=== PATIENT | female | born 1985 | race Caucasian/White ===

== ENCOUNTER 2022-06-10 07:52 | Emergency (ER) | payer OTHER ==
--- OUTSIDE RECORDS SUMMARY | 2022-06-10 08:01 | XMS REPORT | Continuity of Care Document ---
:1985 Author Organization [facility] t Address [address] [place] [address] Care Team Providers Name Role Phone PCP, PATIENT DOES NOT HAVE A Primary Care Physician Unavaila YAHAIRA Murrieta Attending Clinician Unavailable YAHAIRA RODRIGUEZ Attending Clinician Unavailable YARI ACOSTA Attending Clinician Unavailable Yari Acosta MD Attending Clinician 2, [facility] Attending Clinician Unavailable Ultrasound, Ang-Mfm Attending Clinician Unavailable Amita Underwood DO Attending Clinician Doctor Unassigned, [place] Attending Clinician Unavailable ARMEN PANDYA Attending Clinician Unavailable Arielle Atkinson Attending Clinician Unavailable Armen Pandya MD Attending Clinician PAULY Attending Clinician Unavailable CIPRIANO Attending Clinician Unavailable A_Byrd Attending Clinician Unavailable PAULY Admitting Clinician Unavailable CIPRIANO Admitting Clinician Unavailable A_Byrd Admitting Clinician Unavailable Payers Payer Name Policy Type Policy Number Effective Date Expiration Date [facility] [id number] 2021 CHOICE [place] STAR 00:00:00 [place]: [id number] 2020 [email or web address] 00:00:00 DARS 1985 Problems Condition Condition Condition Status Onset Resolution Last Treating Co mments Source Name Details Category Date Date Treatment Clinician Date Need for Need for Disease Active Unive rs Tdap Tdap 1- it[place] of [place] 00 Medical Branch AMA AMA Disease Active Univers (advanced (advanced 1-22 ity of maternal maternal 00:00: [place] age) age) 00 Medical multigravi multigravi Br anch da 35+, da 35+, third third trimester trimester Supervisio Supervisio Disease Active 2021-04 U nivers n of n of 2-14 ity of high-risk high-risk 00:[place] 00 Medi davy of elderly of elderly Br anch multigravi multigravi da da 23 weeks 23 weeks Disease Active 2021-04 Unive rs gestation gestation 2-14 ity of of of 00:00: [place] 00 Medi davy Branch Hypothyroi Hypothyroi Disease Active 2021-04 U nivers dism in dism in 2-14 ity of , , [place] antepartum antepartum 00 Me dical , second , second Branch trimester trimester ASCUS with ASCUS with Disease Active 2021-04 U nivers positive positive 1-04 ity of high risk high risk 00:[place] HPV HPV 00 Medical cervical cervical Branch Obesity Obesity Disease Active Univers (BMI (BMI 9-27 ity of 30-39.9) 30-39.9) 00:00: [place] 00 Medical Branch Polycystic Polycystic Problem Active M [facility] ovaries Ovaries 2-21 da 00:00: Medical 00 Group Disease Active 2008-04 Overview: Un matthew delivery delivery -24 Formattin ity of delivered delivered 00:00: g of this [place] 00 note Medical might be Branch different from the original. 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 Anxiety Anxiety Disease Active Univers ity of [facility] Depression Depression Disease Active U nivers affecting affecting ity of , , [place] antepartum antepartum Me dical Branch Furuncle Furuncle Problem Active [facility] [facility] Lethargy Lethargy Problem Active [place] [facility] Allergies, Adverse Reactions, Alerts Allergy Allergy Status Severity Reaction(s) Onset Inactive Treating Comm ents Source Name Type Date Date Clinician NO KNOWN Drug Active Univers ALLERGIE Class ity of [facility] Social History Social Habit Start Date Stop Date Quantity Comments Source ASSERTION 2021-11-11 University of 00:00:00 [facility] History of Cigarette Smoker Universi ty of tobacco use [place] [facility] [place] History SDOH University o f Alcohol Frequency [facility] edical Branch History SDOH University o f Alcohol Std [place] [facility] Drinks Branch History [facility] University o f Alcohol Binge [place] [facility] al Branch Exposure to 2022-05-16 2022-05-26 Not sure [facility] SARS-CoV-2 00:00:00 16:07:00 [facility] (event) Branch Alcohol intake 2022-05-26 2022-05-26 Ex-drinker University of 00:00:00 00:00:00 (finding) [facility] Tobacco use and 2022-01-19 2022-01-19 Smokeless tobacco Un iversity of exposure 00:00:00 00:00:00 non-user [facility] Alcohol Comment 2022-01-19 2022-01-19 quit when found Univ ersity of 00:00:00 00:00:00 was [place] Medica l Branch Tobacco Comment 2022-01-19 2022-01-19 Quit tabacco when Un iversity of 00:00:00 00:00:00 found out was [place] Medic al Branch Sex [birth year] Universit y of 00:00:00 00:00:00 [facility] Smoking Status Start Date Stop Date Source Tobacco smoking [place] consumption unknown Medical Bran ch Ex-smoker 2022-01-19 00:00:00 2022-01-19 [place] o [facility] [place] [facility] 00:00:00 Medical Branch Medications Ordered Filled Start Stop Current Ordering Indication Dosage Frequency Signature Comments Components Source Medication Medication Date Date Medication? Clinician (SIG) Name Name metformin 2021-04- No 2 tablets Un matthew ER 500 mg 2-14 04-07 with ity of 24 hr 13:58: 00:00 evening [place] tablet 54 :00 [facility] metformin 2021-0 Yes 2 tablets Uni vers ER 500 mg 9-27 with ity of 24 hr 10:19: evening [place] tablet 40 [facility] metformin 2021-0 Yes 2 tablets Uni vers ER 500 mg 9-27 with ity of 24 hr 10:19: evening [place] tablet 40 [facility] metformin 2021-0 Yes 2 tablets Uni vers ER 500 mg 9-27 with ity of 24 hr 10:19: evening [place] tablet 40 [facility] metformin 2021-0 Yes 2 tablets Uni vers ER 500 mg 9-27 with ity of 24 hr 10:19: evening [place] tablet 40 [facility] metformin 2021-0 Yes 2 tablets Uni vers ER 500 mg 9-27 with ity of 24 hr 10:19: evening [place] tablet 40 [facility] metformin 2021-0 Yes 2 tablets Uni vers ER 500 mg 9-27 with ity of 24 hr 10:19: evening [place] tablet 40 [facility] metformin 2021-0 Yes 2 tablets Uni vers ER 500 mg 9-27 with ity of 24 hr 10:19: evening [place] tablet 40 [facility] metformin 2021-0 Yes 2 tablets Uni vers ER 500 mg 9-27 with ity of 24 hr 10:19: evening [place] tablet 40 [facility] metformin 2021-0 Yes 2 tablets Uni vers ER 500 mg 9-27 with ity of 24 hr 10:19: evening [place] tablet 40 [facility] metformin 2021-0 Yes 2 tablets Uni vers ER 500 mg 9-27 with ity of 24 hr 10:19: evening [place] tablet 40 [facility] metformin 2021-0 Yes 2 tablets Uni vers ER 500 mg 9-27 with ity of 24 hr 10:19: evening [place] tablet 40 [facility] metformin 2021-0 Yes 2 tablets Uni vers ER 500 mg 9-27 with ity of 24 hr 10:19: evening [place] tablet 40 [facility] metformin 2021-0 Yes 2 tablets Uni vers ER 500 mg 9-27 with ity of 24 hr 10:19: evening [place] tablet 40 meal Medical Branch metformin 2-0 Yes 2 tablets Uni vers ER 500 mg 9-27 with ity of 24 hr 10:19: evening [place] tablet 40 meal Medical Branch metformin 2022-0 Yes 2 tablets Uni vers ER 500 mg 9-27 with ity of 24 hr 10:19: evening [place] tablet 40 meal Medical Branch buPROPion 2022-0 Yes 1 tablet Univ ers SR 150 mg 9-27 in the ity of SR tablet 09:47: morning [place] 19 Medical Branch levothyroxi 2021-0 Yes TAKE 1 Univ ers ne 175 mcg 9-27 TABLET BY ity of tablet 09:47: MOUTH ONCE [place] 19 DAILY ON Medical AN EMPTY Branch STOMACH IN THE MORNING - DOSE CHANGE buPROPion 2021-0 Yes 1 tablet Univ ers SR 150 mg 9-27 in the ity of SR tablet 09:47: morning [place] 19 Medical Branch levothyroxi 2021-0 Yes TAKE 1 Univ ers ne 175 mcg 9-27 TABLET BY ity of tablet 09:47: MOUTH ONCE [place] 19 DAILY ON Medical AN EMPTY Branch STOMACH IN THE MORNING - DOSE CHANGE buPROPion 2021-0 Yes 1 tablet Univ ers SR 150 mg 9-27 in the ity of SR tablet 09:47: morning [place] 19 Medical Branch levothyroxi 2021-0 Yes TAKE 1 Univ ers ne 175 mcg 9-27 TABLET BY ity of tablet 09:47: MOUTH ONCE [place] 19 DAILY ON Medical AN EMPTY Branch STOMACH IN THE MORNING - DOSE CHANGE buPROPion 2021-0 Yes 1 tablet Univ ers SR 150 mg 9-27 in the ity of SR tablet 09:47: morning [place] 19 Medical Branch levothyroxi 2021-0 Yes TAKE 1 Univ ers ne 175 mcg 9-27 TABLET BY ity of tablet 09:47: MOUTH ONCE [place] 19 DAILY ON Medical AN EMPTY Branch STOMACH IN THE MORNING - DOSE CHANGE buPROPion 2021-0 Yes 1 tablet Univ ers SR 150 mg 9-27 in the ity of SR tablet 09:47: morning [place] 19 Medical Branch levothyroxi 2021-0 Yes TAKE 1 Univ ers ne 175 mcg 9-27 TABLET BY ity of tablet 09:47: MOUTH ONCE [place] 19 DAILY ON Medical AN EMPTY Branch STOMACH IN THE MORNING - DOSE CHANGE buPROPion 2021-0 Yes 1 tablet Univ ers SR 150 mg 9-27 in the ity of SR tablet 09:47: morning [place] 19 Medical Branch levothyroxi 2021-0 Yes TAKE 1 Univ ers ne 175 mcg 9-27 TABLET BY ity of tablet 09:47: MOUTH ONCE [place] 19 DAILY ON Medical AN EMPTY Branch STOMACH IN THE MORNING - DOSE CHANGE buPROPion 2022-0 Yes 1 tablet Univ ers SR 150 mg 9-27 in the ity of SR tablet 09:47: morning [place] 19 Medical Branch levothyroxi 2021-0 Yes TAKE 1 Univ ers ne 175 mcg 9-27 TABLET BY ity of tablet 09:47: MOUTH ONCE [place] 19 DAILY ON Medical AN EMPTY Branch STOMACH IN THE MORNING - DOSE CHANGE buPROPion 2021-0 Yes 1 tablet Univ ers SR 150 mg 9-27 in the ity of SR tablet 09:47: morning [place] 19 Medical Branch levothyroxi 2021-0 Yes TAKE 1 Univ ers ne 175 mcg 9-27 TABLET BY ity of tablet 09:47: MOUTH ONCE [place] 19 DAILY ON Medical AN EMPTY Branch STOMACH IN THE MORNING - DOSE CHANGE buPROPion 2021-0 Yes 1 tablet Univ ers SR 150 mg 9-27 in the ity of SR tablet 09:47: morning [place] 19 Medical Branch levothyroxi 2021-0 Yes TAKE 1 Univ ers ne 175 mcg 9-27 TABLET BY ity of tablet 09:47: MOUTH ONCE [place] 19 DAILY ON Medical AN EMPTY Branch STOMACH IN THE MORNING - DOSE CHANGE buPROPion 2-0 Yes 1 tablet Univ ers SR 150 mg 9-27 in the ity of SR tablet 09:47: morning [place] 19 Medical Branch levothyroxi 2021-0 Yes TAKE 1 Univ ers ne 175 mcg 9-27 TABLET BY ity of tablet 09:47: MOUTH ONCE [place] 19 DAILY ON Medical AN EMPTY Branch STOMACH IN THE MORNING - DOSE CHANGE buPROPion 2-0 Yes 1 tablet Univ ers SR 150 mg 9-27 in the ity of SR tablet 09:47: morning [place] 19 Medical Branch levothyroxi 2021-0 Yes TAKE 1 Univ ers ne 175 mcg 9-27 TABLET BY ity of tablet 09:47: MOUTH ONCE [place] 19 DAILY ON Medical AN EMPTY Branch STOMACH IN THE MORNING - DOSE CHANGE buPROPion 2-0 Yes 1 tablet Univ ers SR 150 mg 9-27 in the ity of SR tablet 09:47: morning [place] 19 Medical Branch levothyroxi 2022-0 Yes TAKE 1 Univ ers ne 175 mcg 9-27 TABLET BY ity of tablet 09:47: MOUTH ONCE [place] 19 DAILY ON Medical AN EMPTY Branch STOMACH IN THE MORNING - DOSE CHANGE buPROPion 2022-0 Yes 1 tablet Univ ers SR 150 mg 9-27 in the ity of SR tablet 09:47: morning [place] 19 Medical Branch levothyroxi 202-0 Yes TAKE 1 Univ ers ne 175 mcg 9-27 TABLET BY ity of tablet 09:47: MOUTH ONCE [place] 19 DAILY ON Medical AN EMPTY Branch STOMACH IN THE MORNING - DOSE CHANGE buPROPion 2022-0 Yes 1 tablet Univ ers SR 150 mg 9-27 in the ity of SR tablet 09:47: morning [place] 19 Medical Branch levothyroxi 2021-0 Yes TAKE 1 Univ ers ne 175 mcg 9-27 TABLET BY ity of tablet 09:47: MOUTH ONCE [place] 19 DAILY ON Medical AN EMPTY Branch STOMACH IN THE MORNING - DOSE CHANGE buPROPion 2022-0 Yes 1 tablet Univ ers SR 150 mg 9-27 in the ity of SR tablet 09:47: morning [place] 19 Medical Branch levothyroxi 2021-0 Yes TAKE 1 Univ ers ne 175 mcg 9-27 TABLET BY ity of tablet 09:47: MOUTH ONCE [place] 19 DAILY ON Medical AN EMPTY Branch STOMACH IN THE MORNING - DOSE CHANGE buPROPion 2022-0 Yes 1 tablet Univ ers SR 150 mg 9-27 in the ity of SR tablet 09:47: morning [place] 19 Medical Branch levothyroxi 2022-0 Yes TAKE 1 Univ ers ne 175 mcg 9-27 TABLET BY ity of tablet 09:47: MOUTH ONCE [place] 19 DAILY ON Medical AN EMPTY Branch STOMACH IN THE MORNING - DOSE CHANGE buPROPion 2022-0 Yes 1 tablet Univ ers SR 150 mg 9-27 in the ity of SR tablet 09:47: morning [place] 19 Medical Branch levothyroxi 2022-0 Yes TAKE 1 Univ ers ne 175 mcg 9-27 TABLET BY ity of tablet 09:47: MOUTH ONCE [place] 19 DAILY ON Medical AN EMPTY Branch STOMACH IN THE MORNING - DOSE CHANGE buPROPion 2022-0 Yes 1 tablet Univ ers SR 150 mg 9-27 in the ity of SR tablet 09:47: morning [place] 19 Medical Branch levothyroxi 202-0 Yes TAKE 1 Univ ers ne 175 mcg 9-27 TABLET BY ity of tablet 09:47: MOUTH ONCE [place] 19 DAILY ON Medical AN EMPTY Branch STOMACH IN THE MORNING - DOSE CHANGE buPROPion Yes 1 tablet Univ ers SR 150 mg 9-27 in the ity of SR tablet 09:47: morning [place] 19 Medical Branch levothyroxi Yes TAKE 1 Univ ers ne 175 mcg 9-27 TABLET BY ity of tablet 09:47: MOUTH ONCE [place] 19 DAILY ON Medical AN EMPTY Branch STOMACH IN THE MORNING - DOSE CHANGE buPROPion Yes 1 tablet Univ ers SR 150 mg 9-27 in the ity of SR tablet 09:47: morning [place] 19 Medical Branch levothyroxi Yes TAKE 1 Univ ers ne 175 mcg 9-27 TABLET BY ity of tablet 09:47: MOUTH ONCE [place] 19 DAILY ON Medical AN EMPTY Branch STOMACH IN THE MORNING - DOSE CHANGE 2008-04 Yes Take one Unive rs VIT-IRON 1-26 tablet by ity of FUMARATE-FA 00:00: mouth [place] 65-1 MG 00 daily Medical ORAL TAB Branch DOCUSATE 2008-04 Yes Take one Unive rs CALCIUM 240 -26 capsule by it y of MG ORAL CAP 00:00: mouth [place] 00 daily as Medical needed for Branch constipati on FERROUS 2008-04 Yes Take one Univer s SULFATE 325 -26 tablet by ity of MG (65 MG 00:00: mouth [place] IRON) ORAL 00 twice Medical TAB daily Branch HYDROCODONE 2008-04 Yes Take one Un matthew -ACETAMINOP 1-26 to two ity of HEN 5-325 00:00: [place] MG ORAL TAB 00 mouth Medical every six Branch hours as needed for pain IBUPROFEN 2008-04 Yes Take one Univ ers 600 MG ORAL 1-26 tablet by ity of TAB 00:00: mouth [place] 00 every six Medical hours as Branch needed for pain INFLUENZA A 2008-04 Yes as Univer s (H1N1) VAC -26 directed ity o f 09 (PF) 15 00:00: [place] MCG/0.5 ML 00 Medical IM SUSP Branch 2008-04- No Take one Univ ers VIT-IRON 1-26 27 tablet by ity o f FUMARATE-FA 00:00: 00:00 [place] 65-1 MG 00 :00 daily Medical ORAL TAB Branch DOCUSATE 2008-04- No Take one Univ ers CALCIUM 240 05-20 capsule by i ty of MG ORAL CAP 00:00: 00:00 [place] 00 :00 daily as Medical needed for Branch constipati on FERROUS 2008-04- No Take one [facility] rs SULFATE 325 05-20 tablet by it y of MG (65 MG 00:00: 00:00 mouth [place] IRON) ORAL 00 :00 twice Medical TAB daily Branch HYDROCODONE 2008-04- No Take one U nivers -ACETAMINOP 05-20 to two ity o f HEN 5-325 00:00: 00:00 tablets [place] MG ORAL TAB 00 :00 mouth Medical every six Branch hours as needed for pain IBUPROFEN 2008-04- No Take one Uni vers 600 MG ORAL 05-20 tablet by it y of TAB 00:00: 00:00 mouth [place] 00 :00 every six Medical hours as Branch needed for pain INFLUENZA A 2008-04- No as Unive rs (H1N1) VAC 05-20 directed ity of 09 (PF) 15 00:00: 00:00 [place] MCG/0.5 ML 00 :00 Medical IM SUSP Branch bupropion bupropion No bupropion [place] HCl SR 150 HCl SR 150 HCl SR 150 da mg mg mg Medical tablet,12 tablet,12 tablet,12 Group hr hr hr sustained-r sustained-r sustained- elease TAKE elease TAKE release 1 TABLET BY 1 TABLET BY TAKE 1 MOUTH MOUTH TABLET BY DAILY. take DAILY. take MOUTH daily for daily for DAILY. depression depression take daily for depression levothyroxi levothyroxi No levothyrox [place] ne 100 mcg ne 100 mcg ine 100 da tablet Take tablet Take mcg tablet Medical 1 tablet 1 tablet Take 1 Group every day every day tablet by oral by oral every day route. route. by oral route. metformin metformin No metformin [place] ER 500 mg ER 500 mg ER 500 mg da tablet,exte tablet,exte tablet,ext Medical nded nded ended Group release 24 release 24 release 24 hr hr hr Sprintec Sprintec No Sprintec [place] (28) (28) (28) da Medical Group Synthroid Synthroid No Synthroid [place] 125 mcg 125 mcg 125 mcg da tablet tablet tablet Medical Group Immunizations Ordered Filled Immunization Date Status Comments [facility] Immunization Name Name TDAP 2022-05-13 Completed University of 00:00:00 [facility] TDAP 2022-05-13 Completed University of 00:00:00 [facility] TDAP 2022-05-13 Completed University of 00:00:00 [facility] Influenza Virus 2009-03-20 Completed Universit y of Vaccine 00:00:00 [facility] Influenza Virus 2009-03-20 Completed Universit y of Vaccine 00:00:00 [facility] Influenza Virus 2009-03-20 Completed Universit y of Vaccine 00:00:00 [facility] Influenza Virus 2009-03-20 Completed Universit y of Vaccine 00:00:00 [facility] Influenza Virus 2009-03-20 Completed Universit y of Vaccine 00:00:00 [facility] Influenza Virus 2009-03-20 Completed Universit y of Vaccine 00:00:00 [facility] Influenza Virus 2009-03-20 Completed Universit y of Vaccine 00:00:00 [facility] Influenza Virus 2009-03-20 Completed Universit y of Vaccine 00:00:00 [facility] Influenza Virus 2009-03-20 Completed Universit y of Vaccine 00:00:00 [facility] Influenza Virus 2009-03-20 Completed Universit y of Vaccine 00:00:00 [facility] Influenza Virus 2009-03-20 Completed Universit y of Vaccine 00:00:00 [facility] Influenza Virus 2009-03-20 Completed Universit y of Vaccine 00:00:00 [facility] Influenza Virus 2009-03-20 Completed Universit y of Vaccine 00:00:00 [facility] Influenza Virus 2009-03-20 Completed Universit y of Vaccine 00:00:00 [facility] Influenza Virus 2009-03-20 Completed Universit y of Vaccine 00:00:00 [facility] Influenza Virus 2009-03-20 Completed Universit y of Vaccine 00:00:00 [facility] Influenza Virus 2009-03-20 Completed Universit y of Vaccine 00:00:00 [facility] Influenza Virus 2009-03-20 Completed Universit y of Vaccine 00:00:00 [facility] Influenza Virus 2009-03-20 Completed Universit y of Vaccine 00:00:00 [facility] Influenza Virus 2009-03-20 Completed Universit y of Vaccine 00:00:00 [facility] Influenza Virus 2009-03-20 Completed Universit y of Vaccine 00:00:00 [facility] Vital Signs Vital Name Observation Time Observation Value Comments Source Systolic blood 2022-05-26 22:28:00 125 mm[Hg] Univer sity of pressure [place] [facility] Diastolic blood 2022-05-26 22:28:00 79 mm[Hg] Unive rsity of pressure [place] [facility] Heart rate 2022-05-26 22:28:00 82 /min Universi ty of [place] [facility] Body temperature 2022-05-26 22:28:00 36.67 Maxine Univ ersity of [place] [facility] Respiratory rate 2022-05-26 22:28:00 18 /min Univ ersity of [place] [facility] Body height 2022-05-26 22:28:00 154.9 cm Universi ty of [place] [facility] Body weight 2022-05-26 22:28:00 75.751 kg Universi ty of [place] [facility] BMI 2022-05-26 22:28:00 31.55 kg/m2 Universi ty of [place] [facility] Systolic blood 2022-05-13 22:31:00 120 mm[Hg] Univer sity of pressure [place] [facility] Diastolic blood 2022-05-13 22:31:00 78 mm[Hg] Unive rsity of pressure [place] [facility] Heart rate 2022-05-13 22:31:00 66 /min Universi ty of [place] [facility] Body temperature 2022-05-13 22:31:00 36.83 Maxine Univ ersity of [place] [facility] Respiratory rate 2022-05-13 22:31:00 18 /min Univ ersity of [place] [facility] Body height 2022-05-13 22:31:00 154.9 cm Universi ty of [place] [facility] Body weight 2022-05-13 22:31:00 75.751 kg Universi ty of [place] [facility] BMI 2022-05-13 22:31:00 31.55 kg/m2 Universi ty of [place] [facility] Systolic blood 2022-04-07 19:42:00 111 mm[Hg] Univer sity of pressure [place] [facility] Diastolic blood 2022-04-07 19:42:00 71 mm[Hg] Unive rsity of pressure [place] [facility] Heart rate 2022-04-07 19:42:00 75 /min Universi ty of [place] [facility] Body temperature 2022-04-07 19:42:00 36.56 Maxine Univ ersity of [place] [facility] Respiratory rate 2022-04-07 19:42:00 16 /min Univ ersity of [place] [facility] Body height 2022-04-07 19:42:00 154.9 cm Universi ty of [place] [facility] Body weight 2022-04-07 19:42:00 74.662 kg Universi ty of [place] [facility] BMI 2022-04-07 19:42:00 31.10 kg/m2 Universi ty of [place] [facility] Oxygen saturation in 2022-04-07 19:42:00 99 /min University of Arterial blood by [facility] Pulse oximetry Branch Systolic blood 2022-03-10 22:42:00 120 mm[Hg] Univer sity of pressure [place] [facility] Diastolic blood 2022-03-10 22:42:00 78 mm[Hg] Unive rsity of pressure [place] [facility] Heart rate 2022-03-10 22:42:00 77 /min Universi ty of [place] [facility] Body temperature 2022-03-10 22:42:00 36.5 Maxine Univ ersity of [place] [facility] Respiratory rate 2022-03-10 22:42:00 16 /min Univ ersity of [place] [facility] Body height 2022-03-10 22:42:00 154.9 cm Universi ty of [place] [facility] Body weight 2022-03-10 22:42:00 74.163 kg Universi ty of [place] [facility] BMI 2022-03-10 22:42:00 30.89 kg/m2 Universi ty of [place] [facility] Oxygen saturation in 2022-03-10 22:42:00 98 /min University of Arterial blood by [facility] Pulse oximetry Branch Systolic blood 2022-02-26 19:31:00 108 mm[Hg] Univer sity of pressure [place] [facility] Diastolic blood 2022-02-26 19:31:00 69 mm[Hg] Unive rsity of pressure [place] [facility] Heart rate 2022-02-26 19:31:00 71 /min Universi ty of [place] [facility] Body temperature 2022-02-26 19:31:00 36.67 Maxine Univ ersity of [place] [facility] Respiratory rate 2022-02-26 19:31:00 18 /min Univ ersity of [place] [facility] Body height 2022-02-26 19:31:00 154.9 cm Universi ty [facility] Body weight 2022-02-26 19:31:00 73.211 kg Universi ty [facility] BMI 2022-02-26 19:31:00 30.50 kg/m2 Universi ty [facility] Systolic blood 2022-01-19 14:45:00 116 mm[Hg] Univer sity of pressure [facility] Diastolic blood 2022-01-19 14:45:00 72 mm[Hg] [facility] Heart rate 2022-01-19 14:45:00 67 /min Universi [facility] Body temperature 2022-01-19 14:45:00 36.61 Maxine Univ [facility] Body height 2022-01-19 14:45:00 154.9 cm [facility] Body weight 2022-01-19 14:45:00 72.757 kg [facility] BMI 2022-01-19 14:45:00 30.31 kg/m2 [facility] BP Diastolic 2018-11-22 00:00:00 95 mm[Hg] [facility] Height 2018-11-22 00:00:00 61 [in_i] [facility] BMI (Body Mass 2018-11-22 00:00:00 28.8 kg/m2 [facility] 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) Group BP Systolic 2018-11-22 00:00:00 146 mm[Hg] [facility] Body Weight 2018-11-22 00:00:00 152.6 [lb_av] [facility] Procedures Procedure Date / Time Performing Clinician Source Performed POCT URINALYSIS W/O 2022-05-26 00:00:00 Yari Acosta [facility] SPECIFIC GRAVITY [facility] TDAP VACCINE, >11 YRS, IM 2022-05-13 22:33:20 Veronica Rodriguez [facility] POCT URINALYSIS W/O 2022-05-13 00:00:00 Yahaira Rodriguez [facility] POCT URINALYSIS W/O 2022-04-07 00:00:00 Yari Acosta [facility] POCT URINALYSIS W/O 2022-03-10 00:00:00 Adum, Yari Mcmullen [facility] DISCLOSURE AND CONSENT, 2022-02-26 05:01:00 Doctor UnassignedJorge Luis [facility] MEDICAL AND SURGICAL [facility] PROCEDURES EXTERNAL PROVIDER RECORDS 2022-02-08 05:01:00 Doctor Unassedu, [facility] Name [facility] SCANNED LAB RESULTS 2022-01-25 05:01:00 Doctor Unassedu, [facility] Name [facility] POCT URINALYSIS W/O 2022-01-20 00:00:00 Adum, Yari Mcmullen [facility] PAP SMEAR-LIQUID BASED-CP 2022-01-19 16:20:00 AdumYari [facility] Caesarean Section [facility] Encounters Start End Encounter Admission Attending Care Care Encounter Source Date/Time Date/Time Type Type Clinicians Facility Department ID 2022-06-28 2022-06-28 Outpatient P [facility] [id number] Univers 10:30[facility]00 [facility]22-[facility]-10 2022-06-10 Outpatient R YAHAIRA RODRIGUEZ [facility] B [id number] Univers 08:30:00 08:30:00 YAHAIRA RODRIGUEZ [facility] 2022-05-26 2022-05-26 Outpatient R ADUM, [facility] [id number] Univers 16:15:00 16:52:29 [facility] 2022-05-26 2022-05-26 Routine Adum, [facility] [id number] Univers 16:15:00 16:52:29 Yari BRANDT 350.1.13.10 ity of Visit WOMEN'S 4.2.7.2.686 [facility] [phone] [place] [address] [address] 2022-05-13 2022-05-13 Outpatient R YAHAIRA RODRIGUEZ [facility] B [id number] Univers 16:00:00 16:54:29 YAHAIRA RODRIGUEZ [facility] 2022-05-13 2022-05-13 Routine [facility] 1.2.840.114 [id number] Univers 16:00:00 16:54:29 Yahaira BRANDT 350.1.13.10 i ty of Visit WOMEN'S 4.2.7.2.686 [facility] HEALTH [id number] [address] 2022-05-12 2022-05-12 Outpatient R DANISHAYAHAIRA WILSON [facility] B [id number] Univers 16:15:00 16:15:00 [facility] WIL[facility] 2022-05-11 2022-05-11 Outpatient R DANISHAYAHAIRA WILSON [facility] B [id number] Univers 16:00:00 16:00:00 DANISHAYAHAIRA WILSON [facility] 2022-05-05 2022-05-05 Outpatient R AD, [facility] [id number] Univers 15:45:00 15:45:00 YARI reyes [facility] 2022-05-03 2022-05-03 Supervisor Publications 2, Adc Lab [facility] 1.2.840.114 [id number] Univers 08:30:00 08:45:00 Visit AdYari mayen 350.1.13.10 ity of [place] 4.2.7.2.686 [facility] s PROFESSIO [phone] Pr dic[address] 2022-05-03 2022-05-03 Outpatient R AD, [facility] [id number] Univers 08:30:00 08:30:00 YARI reyes [facility] 2022-04-07 2022-04-07 Outpatient R AD, [facility] [id number] Univers 13:00:00 14:16:10 YARIMEGHANA reyes [facility] 2022-04-07 2022-04-07 Routine [facility] [id number] Univers 13:00:00 14:16:10 Yari BRANDT 350.1.13.10 ity of Visit WOMEN'S 4.2.7.2.686 [facility] [id number] [address] 2022-04-02 2022-04-02 Supervisor Publications Ultrasound, Vipul-Mfmarlin [facility] 1.2 .840.114 [id number] Univers 10:45:00 12:00:00 Visit Amita Underwood SOCIAL INSURANCE ANALYST 350.1.13.10 ity of REGIONAL 4.2.7.2.686 Junior as MATERNAL [id number] Med ical & CHILD [address] [place] [address] 2022-04-02 2022-04-02 Outpatient P CARLI [facility] [id number] Univers 10:45:00 10:45:00 [facility] 2022-03-10 2022-03-10 Outpatient R ADUM, [facility] [id number] Univers 16:15:00 16:55:23 YARI reyes [facility] 2022-03-10 2022-03-10 Routine Adum, [facility] [id number] Univers 16:15:00 16:55:23 Yari BRANDT 350.1.13.10 it[place] of [place] [id number] [address] 2022-02-26 2022-02-26 Supervisor Publications 2, Adc Lab [facility] 1.2.840.114 [id number] Univers 15:15:00 15:30:00 Visit Adum, Yari KUMAR 350.1.13.10 [place] [id number] Pr dical NAL [address] [place] [address] 2022-02-26 2022-02-26 Outpatient R ADUM, [facility] [id number] Univers 14:00:00 15:09:04 YARI reyes [facility] 2022-02-26 2022-02-26 Office Adum, [facility] 1.2.840.114 [id number] Univers 14:00:00 15:09:04 Visit Yari KUMAR 350.1.13.10 [place] [id number] Pr dical NAL [address] [facility] 2022-02-26 2022-02-26 Orders Doctor [place] 1.2.840.114 [id number] Univers 00:00:00 00:00:00 Only Unassigned, QUYNH 350.1.13.10 ity of [place] [facility] 4.2.7.2.686 Junior as [id number] [address] 2022-02-16 2022-02-16 Outpatient R LADONNA [facility] [id number] Univers 10:30:00 10:30:00 YARI itmary of [facility] 2022-02-08 2022-02-08 Outpatient R ARMEN PANDYA [facility] [id number] Univers 09:00:00 09:18:32 ity of [facility] 2022-02-08 2022-02-08 Telemedici Arielle Atkinson [facility] 1.2.8 40.114 [id number] Univers 09:00:00 09:18:32 ne Visit Armen Pandya SOCIAL INSURANCE ANALYST 350.1.13.10 ity of [facility] 4.2.7.2.686 Junior as MATERNAL [id number] Med ical & CHILD [address] [place] [address] 2022-02-08 2022-02-08 Orders Doctor GERMAIN 1.2.840.114 [id number] Univers 00:00:00 00:00:00 Only Unassigned, QUYNH 350.1.13.10 ity of [place] [facility] 4.2.7.2.686 Junior as [id number] [address] 2022-02-03 2022-02-03 Telephone Adum, [facility] 1.2.105.810 [id number] Univers 00:00:00 00:00:00 Yari KUMAR 350.1.13.10 [place] [id number] Pr dical NAL [address] [facility] 2022-01-25 2022-01-25 Supervisor Publications 2, Adc Lab [facility] 1.2.840.114 [id number] Univers 09:30:00 09:45:00 Visit AdYari mayen 350.1.13.10 ity of [place] [id number] Pr dical NAL 353 [facility] 2022-01-25 2022-01-25 Outpatient R ADUM, [facility] [id number] Univers 09:30:00 09:30:00 YARI ity of [facility] 2022-01-25 2022-01-25 Orders Doctor GERMAIN 1.2.840.114 [id number] Univers 00:00:00 00:00:00 Only Unassigned, QUYNH 350.1.13.10 ity of [place] [facility] 4.2.7.2.686 Junior as [id number] [address] 2022-01-25 2022-01-25 Letter Ad, [facility] 1.2.840.114 [id number] Univers 00:00:00 00:00:00 (Out) Yari Mcmullen [place] 350.1.13.10 ity of [place] [id number] Pr dical NAL 134 [facility] 2022-01-21 2022-01-21 [facility]phone [facility] 1.2.173.991 [id number] Univers 00:00:00 00:00:00 Yari L [place] 350.1.13.10 ity of [place] [id number] Pr dical NAL [address] [facility] 2022-01-21 2022-01-21 Telephone [facility] [id number] [id number] Univers 00:00:00 00:00:00 Yari L [place] 350.1.13.10 ity of [place]2.[place] [id number] Pr dical NAL 134 [facility] 2022-01-19 2022-01-19 Outpatient R ADUM, [facility] [id number] Univers 09:30:00 11:08:17 YARI ity of [facility] 2022-01-19 2022-01-19 Initial [facility] 1.2.840.114 [id number] Univers 09:30:00 11:08:17 Yari KUMAR 350.1.13.10 ity of [place] [phone] Pr dic[address] 2022-01-15 2022-01-15 Initial Adum, [facility] 1.2.840.114 [id number] Univers 14:00:00 14:30:00 Yari KUMAR 350.1.13.10 ity of Visit [place].2.[place] [id number] [address] 2022-01-15 2022-01-15 Outpatient R ADUM, [facility] [id number] Univers 14:00:00 14:00:00 YARI reyes [facility] 2021-08-14 2021-08-14 Outpatient LISTER_MELI [facility] 993 [place] 03:58:00 03:58:00 [facility] 2021-05-27 2021-05-27 Outpatient LISTER_MELI [facility] 993 [place] 10:01:00 10:01:00 [facility] 2021-05-27 2021-05-27 Outpatient LISTER_MELI [facility] 993 [place] 10:01:00 10:01:00 SSA [facility] 2021-05-20 2021-05-20 Outpatient DESAI_RAKES [facility] 993 [place] 09:26:00 09:26:00 H [facility]126 [facility] 2020-03-12 2020-03-12 Outpatient A_Byrd [facility] [id number] [place] 02:29:00 02:29:00 1118 [facility] 2020-01-29 2020-01-29 Outpatient A_Byrd [facility] [id number] [place] 10:43:00 10:43:00 1006 [facility] 2018-11-24 2018-11-24 Outpatient A_Byrd [facility] [id number] [place] 03:21:00 03:21:00 0[facility] 2018-11-22 2018-11-22 Tarah [facility] [place] - [id number] M [place] 00:00:00 00:00:00 Paulo Garcia, Medical Medica jessica MD: [address] [facility], OBGYN [address], [place] [address] , Ph. [phone] Results Test Description Test Time Test Comments Results Result Comments Source POCT URINALYSIS W/O SPECIFIC GRAVITY 2022-05-26 22:25:00 Test Item Value Reference Range Interpretation Comme nts POCT PH U (test code = 3254) n/a 5-8 POCT U LEUK EST (test code = 3263) n/a Negative - Negative POCT U NIT (test code = 3262) n/a Negative - Negative POCT U PROT (test code = 3259) negative Negative - Negative POCT U GLU (test code = 3256) negative Negative - Negative POCT U KETONE (test code = 3258) n/a Negative - Negative POCT U BLD (test code = 3257) n/a Negative - Negative [facility] SPECIFIC [id number] 22:25:00 Test Item Value Reference Range Interpretation Comments POCT PH U (test code = 3254) n/a 5-8 POCT U LEUK EST (test code = n/a Negative - Negative 3263) POCT U NIT (test code = 3262) n/a Negative - Negative POCT U PROT (test code = 3259) negative Negative - Negative POCT U GLU (test code = 3256) negative Negative - Negative POCT U KETONE (test code = 3258) n/a Negative - Negative POCT U BLD (test code = 3257) n/a Negative - Negative [facility]IN[facility] W/O SPECIFIC [id number] 22:34:00 Test Item Value Reference Range Interpretation Comments POCT PH U (test code = 3254) N/A 5-8 POCT U LEUK EST (test code = N/A Negative - Negative 3263) POCT U NIT (test code = 3262) N/A Negative - Negative POCT U PROT (test code = 3259) Negative Negative - Negative POCT U GLU (test code = 3256) Negative Negative - Negative POCT U KETONE (test code = 3258) N/A Negative - Negative POCT U BLD (test code = 3257) N/A Negative - Negative [facility] SPECIFIC [id number] 19:50:00 Test Item Value Reference Range Interpretation Comments POCT PH U (test code = 3254) n/a 5-8 POCT U LEUK EST (test code = n/a Negative - Negative 3263) POCT U NIT (test code = 3262) n/a Negative - Negative POCT U PROT (test code = 3259) negative Negative - Negative POCT U GLU (test code = 3256) negative Negative - Negative POCT U KETONE (test code = 3258) n/a Negative - Negative POCT U BLD (test code = 3257) n/a Negative - Negative [facility]/O SPECIFIC [id number] 22:48:00 Test Item Value Reference Range Interpretation Comments POCT PH U (test code = 3254) n/a 5-8 POCT U LEUK EST (test code = n/a Negative - Negative 3263) POCT U NIT (test code = 3262) n/a Negative - Negative POCT U PROT (test code = 3259) negative Negative - Negative POCT U GLU (test code = 3256) negative Negative - Negative POCT U KETONE (test code = 3258) n/a Negative - Negative POCT U BLD (test code = 3257) n/a Negative - Negative [facility]/O SPECIFIC [id number] 18:00:00 Test Item Value Reference Range Interpretation Comments POCT PH U (test code = 3254) 7 mg/dl 5-8 POCT U LEUK EST (test code = neg Negative - Negative 3263) POCT U NIT (test code = 3262) neg Negative - Negative POCT U PROT (test code = 3259) neg Negative - Negative POCT U GLU (test code = 3256) neg Negative - Negative POCT U KETONE (test code = 3258) neg Negative - Negative POCT U BLD (test code = 3257) neg Negative - Negative [facility]
[2022-06-10] MEDS ORDERED: ACETAMINOPHEN 500 MG TAB ONE (08:10)
[2022-06-10] MEDS ORDERED: HYDROMORPHONE HCL 1 MG/ML INJ ONE (08:10)
[2022-06-10 09:20] LABS: SARS-COV-2 RT PCR NEGATIVE (NEGATIVE)
--- NOTE | 2022-06-10 09:48 | EDPHYS ---
Physician Documentation [facility] Name: Chon Granda Age: 36 yrs Sex: Female : 1985 Arrival Date: 06/10/2022 Time: 07:58 Bed 11 Private MD: ED Physician Param Charles HPI: 06/10 09:47 This 36 yrs old Female presents to ER via Ambulatory with complaints of Flu Symptoms. pm1 09:47 The patient or guardian reports cough, productive sounding, flu symptoms. Onset: The pm1 symptoms/episode began/occurred 1 week(s) ago. Modifying factors: The symptoms are alleviated by OTC meds, the symptoms are aggravated by nothing. Associated signs and symptoms: Pertinent positives: chest pain, with cough, Pertinent negatives: ear ache, fever, nausea, sore throat, vomiting. Severity of symptoms: in the emergency department the symptoms are unchanged. The patient has experienced similar episodes in the past, a few times. The patient has not recently seen a physician. Patient reports yesterday at work with wheezing and difficulty breathing. Patient with productive sounding cough. Feels like she is unable to spit the phlegm out. Patient is 8 months . Has been using multiple OTC cough and cold medications. Historical: - Allergies: 08:21 No Known Allergies; ss - PMHx: 08:21 None; ss - PSHx: 08:21 section; ss - Immunization history:: Client reports having NOT received the Covid vaccine. - Social history:: Smoking status: Patient denies any tobacco usage or history of. ROS: 09:47 Abdomen/GI: Negative for abdominal pain, nausea, vomiting, diarrhea, and constipation, pm1 Back: Negative for injury and pain, : Negative for injury, bleeding, discharge, and swelling, MS/Extremity: Negative for injury and deformity, Skin: Negative for injury, rash, and discoloration, Neuro: Negative for headache, weakness, numbness, tingling, and seizure. 09:47 Constitutional: Negative for body aches, fever, poor PO intake. 09:47 Cardiovascular: Positive for chest pain, with cough. 09:47 Respiratory: Positive for cough, "sounds productive". 09:47 All other systems are negative. Exam: 09:47 Constitutional: This is a well developed, well nourished patient who is awake, alert, pm1 and in no acute distress. Head/Face: Normocephalic, atraumatic. 09:47 Back: No spinal tenderness. No costovertebral tenderness. Full range of motion. Skin: Warm, dry with normal turgor. Normal color with no rashes, no lesions, and no evidence of cellulitis. MS/ Extremity: Pulses equal, no cyanosis. Neurovascular intact. Full, normal range of motion. 09:47 Cardiovascular: Exam negative for acute changes, Rate: normal, Rhythm: regular, Pulses: no pulse deficits are appreciated, Heart sounds: normal, normal S1and S2. 09:47 Respiratory: Exam negative for acute changes, respiratory distress, shortness of breath, Breath sounds: are clear throughout, no bronchial sounds, no decreased breath sounds, no rales, rhonchi, no wheezing. 09:47 Neuro: Exam negative for acute changes, Orientation: is normal, Mentation: is normal, Motor: is normal, moves all fours. Vital Signs: 08:04 BP 128 / 63; Pulse 75; Resp 16; Temp 97.7(TE); Pulse Ox 98% on R/A; Weight 75.75 kg; ss Height 5 ft. 1 in. (154.94 cm); Pain 4/10; 08:04 Body Mass Index 31.55 (75.75 kg, 154.94 cm) ss MDM: 08:04 Patient medically screened. pm1 09:30 Data reviewed: vital signs. pm1 09:30 ED course: Patient reported wheezing and difficulty breathing yesterday at work. pm1 Patient without any wheezing here but discussed the option of giving her albuterol inhaler as needed if she has wheezing and difficulty breathing. Reviewed otc medications of patient for safety. 06/10 08:25 Order name: COVID-19/FLU A+B/RSV; Complete Time: 09:24 pm1 Administered Medications: No medications were administered Disposition Summary: 06/10/22 09:47 Discharge Ordered Location: Home pm1 Problem: new pm1 Symptoms: have improved pm1 Condition: Stable pm1 Diagnosis - Acute upper respiratory infection, unspecified pm1 Followup: pm1 - With: Emergency Department - When: As needed - Reason: Worsening of condition Followup: pm1 - With: Private Physician - When: 2 - 3 days - Reason: Recheck today's complaints, Continuance of care, Re-evaluation by your physician Discharge Instructions: - Discharge Summary Sheet pm1 - Upper Respiratory Infection, Adult pm1 Forms: - Medication Reconciliation Form pm1 - Thank You Letter pm1 - Antibiotic Education pm1 - Prescription Opioid Use pm1 Prescriptions: - Ventolin HFA 90 mcg/actuation Inhalation HFA aerosol inhaler - inhale 1 puff by INHALATION route every 4-6 hours As needed; 1 Inhaler; pm1 Refills: 0, Product Selection Permitted Signatures: Dispatcher [employer] Elizabet Mcdowell, RN RN ss Richard Oliva, ENVIRONMENTAL HEALTH AND SAFETY INTERN ENVIRONMENTAL HEALTH AND SAFETY INTERN pm1
--- NOTE | 2022-06-10 09:48 | ER ---
Nurse's Notes [facility] Name: Chon Granda Age: 36 yrs Sex: Female : 1985 Arrival Date: 06/10/2022 Time: 07:58 Bed 11 Private MD: Diagnosis: Acute upper respiratory infection, unspecified Presentation: 06/10 08:04 Chief complaint: Patient states: cough and congestion that began 1 week ago. Denies ss fever. Coronavirus screen: Client denies travel out of the [place] in the last 14 days. Ebola Screen: Patient denies exposure to infectious person. Patient denies travel to an Ebola-affected area in the 21 days before illness onset. Initial Sepsis Screen: Does the patient meet any 2 criteria? No. Patient's initial sepsis screen is negative. Does the patient have a suspected source of infection? No. Patient's initial sepsis screen is negative. Risk Assessment: Do you want to hurt yourself or someone else? Patient reports no desire to harm self or others. Onset of symptoms was June 03, 2022. 08:04 Method Of Arrival: Ambulatory ss 08:04 Acuity: HERVE 4 ss Historical: - Allergies: 08:21 No Known Allergies; ss - PMHx: 08:21 None; ss - PSHx: 08:21 section; ss - Immunization history:: Client reports having NOT received the Covid vaccine. - Social history:: Smoking status: Patient denies any tobacco usage or history of. Screenin:35 [facility] ED Fall Risk Assessment (Adult) History of falling in the last 3 months, ss including since admission No falls in past 3 months (0 pts). Abuse screen: Denies threats or abuse. Denies injuries from another. Nutritional screening: No deficits noted. Tuberculosis screening: Never had TB. Assessment: 08:35 General: Appears in no apparent distress. comfortable, Behavior is calm, cooperative. ss Pain: Complains of pain in chest Pain currently is 4 out of 10 on a pain scale. Neuro: Level of Consciousness is awake, alert, obeys commands. Cardiovascular: Capillary refill < 3 seconds is brisk in bilateral fingers. Respiratory: Airway is patent Respiratory effort is even, unlabored. Respiratory: Reports cough that is since x 1 week. Derm: Skin is pink, warm \T\ dry. normal. Musculoskeletal: Circulation, motion, and sensation intact. Range of motion: intact in all extremities. Vital Signs: 08:04 BP 128 / 63; Pulse 75; Resp 16; Temp 97.7(TE); Pulse Ox 98% on R/A; Weight 75.75 kg; ss Height 5 ft. 1 in. (154.94 cm); Pain 4/10; 08:04 Body Mass Index 31.55 (75.75 kg, 154.94 cm) ED Course: 07:58 Patient arrived in ED. rg4 08:04 Richard Oliva NP is PHCP. pm1 08:04 Param Charles MD is Attending Physician. pm1 08:21 Triage completed. ss 08:21 Arm band placed on right wrist. ss 08:35 Elizabet Solomon RN is Primary Nurse. ss 08:35 Patient has correct armband on for positive identification. Bed in low position. Call ss light in reach. 10:00 No provider procedures requiring assistance completed. Patient did not have IV access ss during this emergency room visit. Administered Medications: No medications were administered Medication: 08:35 VIS not applicable for this client. Outcome: 09:47 Discharge ordered by . pm1 10:00 Discharged to home ambulatory. ss 10:00 Condition: good 10:00 Discharge instructions given to patient, family, Instructed on discharge instructions, follow up and referral plans. Demonstrated understanding of instructions, follow-up care, medications, Prescriptions given X 1. 10:15 Patient left the ED. Signatures: Elizabet Solomon RN RN Richard Oliva NP PARTS WASHER pm1 Shonda Johnson rg4
[2022-06-10 10:23] VITALS: BP 128/63; TEMP 97.7; O2SAT 98
== END 2022-06-10 10:15 | disposition home or self-care (01) ==
LOC: ER 07:52
DX: O99.513 Diseases of the respiratory system complicating pregnancy, third trimester (principal); Z3A.00 Weeks of gestation of pregnancy not specified; Z20.822 Contact with and (suspected) exposure to COVID-19
CPT/HCPCS: 0241U; 99282; J1170